=== PATIENT | female | born 2000 | race Caucasian/White ===

== ENCOUNTER 2022-03-01 20:01 | Emergency (ER) | payer BC ==
[~2022-03-01] VITALS: Ht 160 cm; Wt 53.2 kg
[2022-03-01 22:47] LABS: COLLECTION METHOD CLEAN CATCH
[2022-03-01 22:56] LABS: MUCOUS Present (NOT PRESENT); PH 6 (5-8); SQUAMOUS EPITHELIAL 0-2 /hpf (0-10); URINE APPEARANCE Hazy (CLEAR/HAZY); URINE BACTERIA Rare /hpf (NONE SEEN); URINE BILIRUBIN Negative (NEGATIVE); URINE BLOOD Negative (NEGATIVE); URINE COLOR Yellow (YELLOW); URINE GLUCOSE Negative (NEGATIVE); URINE KETONE Negative (NEGATIVE); URINE LEUKOCYTE ESTERASE 3+ (NEGATIVE); URINE NITRATE Positive (NEGATIVE); URINE PROTEIN(semi-quant) Negative (NEGATIVE); URINE RBC 0-2 /hpf (0-2); URINE UROBILINOGEN Negative (NEGATIVE)
[2022-03-01] MEDS ORDERED: CEFTIN 250250 MG/TAB PO (23:29)
[2022-03-01] MEDS ORDERED: LIDODERM 5% PATC1 EA TP (23:29)
[2022-03-01] MEDS ORDERED: MEDROL 4MG DOSPA4 MG PO (23:29)
[2022-03-01 23:43] VITALS: BP 115/70; PULSE 72; TEMP 97.9
== END 2022-03-01 23:43 | disposition home or self-care (01) ==
LOC: COL.ER 20:01
PROVIDERS: Nurse Practitioner
DX: M54.50 Low back pain, unspecified (principal); N39.0 Urinary tract infection, site not specified
CPT/HCPCS: J1885; J2360